=== PATIENT | male | born 1940 | race Caucasian/White ===

== ENCOUNTER 2016-08-13 11:33 | Inpatient (IN) | payer MEDICARE ==
[~2016-08-13] VITALS: Ht 175.3 cm; Wt 111.9 kg
[2016-08-13] MEDS ORDERED: METHYLPRED SOD SUCC 125 MG/2 ML VIAL ONE (12:21)
[2016-08-13] MEDS ORDERED: DUONEB INH ONE (12:41)
[2016-08-13] MEDS ORDERED: CEFTRIAXONE 1 GM VIAL ONE (14:44)
[2016-08-13] MEDS ORDERED: SODIUM CHLORIDE 0.9% 100 ML IV ONE (14:44)
[2016-08-13 15:30] VITALS: BP_SYST 106; BP_SYST 110; RESP 20; TEMP 97.8; Ht 175.3 cm; Wt 111.9 kg
[2016-08-13] MEDS ORDERED: GLUCAGON 1 MG VIAL IM PRN (16:00)
[2016-08-13] MEDS ORDERED: DEXTROSE 50% SYRINGE 50 ML IV PRN (16:00)
[2016-08-13] MEDS: METHYLPRED SOD SUCC 40 MG VIAL IV SCH ×2 (18:32→23:06)
[2016-08-13] MEDS: DUONEB INH SCH ×2 (19:07→22:40)
[2016-08-13 19:12] VITALS: RESP 22
[2016-08-13 19:14] VITALS: BP_SYST 120; RESP 20; TEMP 98.1
[2016-08-13] MEDS ORDERED: TRAMADOL 50 MG TAB PO PRN ×2 (21:10→21:35)
[2016-08-13] MEDS ORDERED: TRAMADOL 50 MG TAB ONE (21:12)
[2016-08-13] MEDS: METOPROLOL TART 25 MG TAB PO SCH (23:05)
[2016-08-13] MEDS: APIXABAN 5 MG TAB PO SCH (23:05)
[2016-08-13] MEDS: GABAPENTIN 300 MG CAP PO SCH (23:06)
[2016-08-13] MEDS: ROPINIROLE 0.25 MG TAB PO SCH (23:14)
[2016-08-13 23:17] VITALS: BP_SYST 107; RESP 20; TEMP 98.2
[2016-08-14] VITALS (7 sets, daily range): BP systolic 100–116; RESP 20–21; TEMP 97.2–98.4
[2016-08-14] MEDS: METHYLPRED SOD SUCC 40 MG VIAL IV SCH ×3 (06:30→16:50)
[2016-08-14] MEDS: SODIUM CHLORIDE 0.9% FLUSH BAG 500 ML IV SCH (06:31)
[2016-08-14] MEDS: DUONEB INH SCH ×5 (08:32→23:06)
[2016-08-14] MEDS: CEFTRIAXONE 1 GM in SODIUM CHLORIDE 0.9% 50 ML IV SCH (08:44)
[2016-08-14] MEDS: APIXABAN 5 MG TAB PO SCH ×2 (08:45→21:22)
[2016-08-14] MEDS: METOPROLOL TART 25 MG TAB PO SCH ×2 (08:45→21:22)
[2016-08-14] MEDS: BUMETANIDE 1 MG TAB PO SCH (08:45)
[2016-08-14] MEDS: CYANOCOBALAMIN/FA/PYRIDOX TAB PO SCH (08:45)
[2016-08-14] MEDS: FLUOXETINE 20 MG CAP PO SCH (08:45)
[2016-08-14] MEDS: TAMSULOSIN 0.4 MG CAP PO SCH (08:45)
[2016-08-14] MEDS: ROPINIROLE 0.25 MG TAB PO SCH (21:21)
[2016-08-14] MEDS: GABAPENTIN 300 MG CAP PO SCH (21:21)
[2016-08-15] VITALS (9 sets, daily range): BP systolic 93–117; RESP 18–22; TEMP 97.5–98.5
[2016-08-15] MEDS: METHYLPRED SOD SUCC 40 MG VIAL IV SCH ×4 (00:39→17:01)
[2016-08-15] MEDS: SODIUM CHLORIDE 0.9% FLUSH BAG 500 ML IV SCH (05:16)
[2016-08-15] MEDS: DUONEB INH SCH ×5 (07:51→22:39)
[2016-08-15] MEDS: CEFTRIAXONE 1 GM in SODIUM CHLORIDE 0.9% 50 ML IV SCH (08:33)
[2016-08-15] MEDS: BUMETANIDE 1 MG TAB PO SCH (08:33)
[2016-08-15] MEDS: SPIRONOLACTONE 25 MG TAB PO SCH (08:34)
[2016-08-15] MEDS: APIXABAN 5 MG TAB PO SCH ×2 (08:34→20:31)
[2016-08-15] MEDS: TAMSULOSIN 0.4 MG CAP PO SCH (08:34)
[2016-08-15] MEDS: CYANOCOBALAMIN/FA/PYRIDOX TAB PO SCH (08:34)
[2016-08-15] MEDS: METOPROLOL TART 25 MG TAB PO SCH ×2 (08:34→20:31)
[2016-08-15] MEDS: FLUOXETINE 20 MG CAP PO SCH (08:35)
[2016-08-15] MEDS: ROPINIROLE 0.25 MG TAB PO SCH (20:31)
[2016-08-15] MEDS: GABAPENTIN 300 MG CAP PO SCH (20:31)
[2016-08-15] MEDS: TRAMADOL 50 MG TAB PO PRN (23:04)
[2016-08-16] VITALS (10 sets, daily range): BP systolic 103–129; RESP 20–22; TEMP 97.7–98.4
[2016-08-16] MEDS: SODIUM CHLORIDE 0.9% FLUSH BAG 500 ML IV SCH (05:18)
[2016-08-16] MEDS: DUONEB INH SCH ×5 (07:14→23:17)
[2016-08-16] MEDS: FLUOXETINE 20 MG CAP PO SCH (08:27)
[2016-08-16] MEDS: CEFTRIAXONE 1 GM in SODIUM CHLORIDE 0.9% 50 ML IV SCH (08:27)
[2016-08-16] MEDS: PREDNISONE 50 MG TAB PO SCH (08:27)
[2016-08-16] MEDS: APIXABAN 5 MG TAB PO SCH ×2 (08:28→20:29)
[2016-08-16] MEDS: CYANOCOBALAMIN/FA/PYRIDOX TAB PO SCH (08:28)
[2016-08-16] MEDS: BUMETANIDE 1 MG TAB PO SCH (08:28)
[2016-08-16] MEDS: METOPROLOL TART 25 MG TAB PO SCH ×2 (08:28→20:29)
[2016-08-16] MEDS: TAMSULOSIN 0.4 MG CAP PO SCH (08:28)
[2016-08-16] MEDS: TRAMADOL 50 MG TAB PO PRN ×2 (11:49→17:55)
[2016-08-16] MEDS: ROPINIROLE 0.25 MG TAB PO SCH (20:28)
[2016-08-16] MEDS: GABAPENTIN 300 MG CAP PO SCH (20:29)
[2016-08-17] VITALS (9 sets, daily range): BP systolic 109–124; RESP 18–20; TEMP 97.5–98.3
[2016-08-17] MEDS: TRAMADOL 50 MG TAB PO PRN ×3 (06:02→20:16)
[2016-08-17] MEDS: SODIUM CHLORIDE 0.9% FLUSH BAG 500 ML IV SCH (06:02)
[2016-08-17] MEDS: DUONEB INH SCH ×5 (07:23→22:57)
[2016-08-17] MEDS: CEFTRIAXONE 1 GM in SODIUM CHLORIDE 0.9% 50 ML IV SCH (08:34)
[2016-08-17] MEDS: TAMSULOSIN 0.4 MG CAP PO SCH (08:34)
[2016-08-17] MEDS: BUMETANIDE 1 MG TAB PO SCH (08:35)
[2016-08-17] MEDS: FLUOXETINE 20 MG CAP PO SCH (08:35)
[2016-08-17] MEDS: METOPROLOL TART 25 MG TAB PO SCH ×2 (08:35→20:16)
[2016-08-17] MEDS: SPIRONOLACTONE 25 MG TAB PO SCH (08:35)
[2016-08-17] MEDS: CYANOCOBALAMIN/FA/PYRIDOX TAB PO SCH (08:35)
[2016-08-17] MEDS: PREDNISONE 50 MG TAB PO SCH (08:35)
[2016-08-17] MEDS: APIXABAN 5 MG TAB PO SCH ×2 (08:35→20:16)
[2016-08-17] MEDS: ROPINIROLE 0.25 MG TAB PO SCH (20:15)
[2016-08-17] MEDS: GABAPENTIN 300 MG CAP PO SCH (20:16)
[2016-08-18] VITALS (7 sets, daily range): BP systolic 107–138; RESP 16–20; TEMP 97.5–98.3
[2016-08-18] MEDS: SODIUM CHLORIDE 0.9% FLUSH BAG 500 ML IV SCH (05:20)
[2016-08-18] MEDS: DUONEB INH SCH ×5 (07:24→22:58)
[2016-08-18] MEDS: FLUOXETINE 20 MG CAP PO SCH (08:29)
[2016-08-18] MEDS: CEFTRIAXONE 1 GM in SODIUM CHLORIDE 0.9% 50 ML IV SCH (08:29)
[2016-08-18] MEDS: METOPROLOL TART 25 MG TAB PO SCH ×2 (08:29→21:10)
[2016-08-18] MEDS: TAMSULOSIN 0.4 MG CAP PO SCH (08:30)
[2016-08-18] MEDS: BUMETANIDE 1 MG TAB PO SCH (08:30)
[2016-08-18] MEDS: PREDNISONE 50 MG TAB PO SCH (08:30)
[2016-08-18] MEDS: CYANOCOBALAMIN/FA/PYRIDOX TAB PO SCH (08:30)
[2016-08-18] MEDS: APIXABAN 5 MG TAB PO SCH ×2 (08:30→21:10)
[2016-08-18] MEDS: ROPINIROLE 0.25 MG TAB PO SCH (21:09)
[2016-08-18] MEDS: TRAMADOL 50 MG TAB PO PRN (21:09)
[2016-08-18] MEDS: GABAPENTIN 300 MG CAP PO SCH (21:10)
[2016-08-19] VITALS (7 sets, daily range): BP systolic 115–135; RESP 16–20; TEMP 97.4–98.2
[2016-08-19] MEDS: SODIUM CHLORIDE 0.9% FLUSH BAG 500 ML IV SCH (05:44)
[2016-08-19] MEDS: DUONEB INH SCH ×4 (06:50→19:24)
[2016-08-19] MEDS: SPIRONOLACTONE 25 MG TAB PO SCH (08:55)
[2016-08-19] MEDS: APIXABAN 5 MG TAB PO SCH (08:55)
[2016-08-19] MEDS: CEFTRIAXONE 1 GM in SODIUM CHLORIDE 0.9% 50 ML IV SCH (08:55)
[2016-08-19] MEDS: FLUOXETINE 20 MG CAP PO SCH (08:55)
[2016-08-19] MEDS: CYANOCOBALAMIN/FA/PYRIDOX TAB PO SCH (08:55)
[2016-08-19] MEDS: TAMSULOSIN 0.4 MG CAP PO SCH (08:55)
[2016-08-19] MEDS: PREDNISONE 50 MG TAB PO SCH (08:55)
[2016-08-19] MEDS: METOPROLOL TART 25 MG TAB PO SCH (08:55)
[2016-08-19] MEDS: BUMETANIDE 1 MG TAB PO SCH (08:55)
[2016-08-19] MEDS: TRAMADOL 50 MG TAB PO PRN (08:56)
== END 2016-08-19 19:45 | DRG 191 ==
LOC: ENRESERVTM → ENRESERVDT → ER 11:33 → ENPENDDIS 14:09 → EMR 14:09 → 3NT 15:30
PROVIDERS: ADMIT Internal Medicine; ATTEND Internal Medicine
DX: J44.1 Chronic obstructive pulmonary disease with (acute) exacerbation (principal); I50.32 Chronic diastolic (congestive) heart failure; I11.0 Hypertensive heart disease with heart failure; C34.90 Malignant neoplasm of unspecified part of unspecified bronchus or lung; E11.9 Type 2 diabetes mellitus without complications; G47.33 Obstructive sleep apnea (adult) (pediatric); I25.10 Atherosclerotic heart disease of native coronary artery without angina pectoris; F17.210 Nicotine dependence, cigarettes, uncomplicated; I48.91 Unspecified atrial fibrillation; R09.02 Hypoxemia; E66.9 Obesity, unspecified; Z68.36 Body mass index [BMI] 36.0-36.9, adult
CPT/HCPCS: 36415; 36600; 71010; 80051; 80053; 82330; 82553; 82803; 82947; 83880; 84484; 85025; 93005; 94640; 94660; 94799; 96374; 96375